=== PATIENT | female | born 1995 | race Two or more races ===

== ENCOUNTER 2024-06-28 12:54 | Emergency (ER) | payer OTHER ==
[2024-06-28 13:07] VITALS: BP 113/72; PULSE 68; RESP 16; BMI 23.1
[2024-06-28] MEDS ORDERED: ONDANSETRON 4 MG/2 ML VIAL ONE (13:34)
[2024-06-28] MEDS ORDERED: ACETAMINOPHEN INJECTION 100 ML ONE (13:34)
[2024-06-28] MEDS ORDERED: MECLIZINE HCL 25 MG TABLET (FP) ONE (13:34)
[2024-06-28] MEDS: LACTATED RINGERS SOLUTION 1000 ML INFUS.BAG IV ONE (14:20)
[2024-06-28] MEDS: ONDANSETRON 4 MG/2 ML VIAL IVPUSH ONE (14:20)
[2024-06-28] MEDS: ACETAMINOPHEN 1000 MG/100 ML BAG IVPB ONE (14:20)
[2024-06-28] MEDS: MECLIZINE HCL 25 MG TABLET (FP) PO ONE (14:20)
[2024-06-28 14:23] LABS: BASO % 0.3 % (0-2.0); EOS % 0.5 % (0-4.5); HEMATOCRIT 40.9 % (32.4-45.2); LYMPH % 19.1 % (8-40); MCH 29.6 pg (25.7-33.7); MCHC 34.1 g/dl (32.0-36.0); MEAN CELL VOLUME 86.9 fl (80-96); MEAN PLT VOLUME 7.4 fl (7.5-11.1); MONO % 5.1 % (3.8-10.2); PLATELET COUNT 237 10^3/uL (134-434); RBC 4.71 M/mm3 (3.60-5.2); RDW 13.3 % (11.6-15.6); WHITE BLOOD COUNT 9.9 K/mm3 (4.0-10.0)
[2024-06-28 14:40] LABS: POTASSIUM 4.1 mmol/L (3.5-5.1)
[2024-06-28 14:42] LABS: BLOOD UREA NITROGEN 12.4 mg/dL (7-18); CALCIUM 9.3 mg/dL (8.5-10.1)
[2024-06-28 14:46] LABS: BILIRUBIN,TOTAL 0.4 mg/dL (0.2-1)
[2024-06-28 14:47] LABS: TOT PROT 7.3 g/dl (6.4-8.2)
[2024-06-28 15:59] VITALS: TEMP 99.2
[2024-06-28 16:34] LABS: HIV INTERPRETATION NEGATIVE (NEGATIVE)
== END 2024-06-28 16:41 | disposition home or self-care (01) ==
LOC: JER 12:54
PROC: 3E033NZ Introduction of Analgesics, Hypnotics, Sedatives into Peripheral Vein, Percutaneous Approach (ICD-10-PCS; principal; 2024-06-28)
PROC: 3E033GC Introduction of Other Therapeutic Substance into Peripheral Vein, Percutaneous Approach (ICD-10-PCS; 2024-06-28)
DX: R42 Dizziness and giddiness (principal); R11.10 Vomiting, unspecified; Z20.822 Contact with and (suspected) exposure to COVID-19
CPT/HCPCS: 0241U-QW; 36415; 80053; 83690; 84703; 85025; 86803; 87389; 99284-25; J0131